=== PATIENT | male | born 1990 | race African-American/Black ===

== ENCOUNTER 2017-10-15 05:02 | Emergency (ER) | payer OTHER ==
[2017-10-15 05:28] VITALS: BP 170/112; PULSE 107; RESP 18; TEMP 98.2; O2SAT 91
[2017-10-15] MEDS ORDERED: IBUPROFEN 600 MG TAB PO ONE (05:28)
[2017-10-15] MEDS ORDERED: ACETAMINOPHEN 500 MG TAB PO ONE (05:28)
--- NOTE | 2017-10-15 05:32 | EDPHY ---
H & P Time Seen by Provider: 10/15/17 05:31 HPI/ROS: CC: low back pain HPI: This 26 y/o male with PMH of pulmonary HTN, asthma, NIDDM and TOYN presents to the ER this morning with his GF of 4 months for low back pain x 2 days. 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 After his shift, he helped a [employer] employee move some boxes filled with [employer] wiper fluid and defrosting liquid. The day after this he had pain in the right lower back. It feels like a "tight knot." He rates it a 7/10. "I was worried I strained a muscle." No aggravating or alleviating factors. No radiation of the pain. No numbness, tingling, saddle anesthesia, bowel or bladder disfunction, no foot drop. No hematuria or dysuria. No other injury. He did have low back pain in the past. No recent illness. Checks his blood glucose every 2 weeks or so. Says he checked it yesterday and it was "medium." Hasn't seen his PCP in one year. Note: The patient lives in [place] and was in [place] this morning with his girlfriend. He states the discomfort was keeping him awake and his girlfriend ( who lives in this area) wanted him to come to this facility from [place]. Upon check-in, the girlfriend asked the RN which doctor was working. The girlfriend went back out to the car and did not enter the patient's room while I was with him. I recognize the girlfriend from frequent prior visits, many for pain related complaints and even "low back pain from lifting boxes." ROS: The remainder of a 10 pt. ROS is negative. 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 Unmarried. Works as a security technician. Smoking Status: Never smoked Physical Exam: Gen: A/O x 3, in NAD Skin: No rashes HEENT: NC/AT, PERRLA, EOMI, oropharynx clear, TMs nml Neck: supple, FROM Heart: RRR, no M/G/R Lungs: CTAB, non R/R/W Abdomen: Soft, NT, ND; +BS; no R/G/R Back: +TTP right lower back lateral to sacrum at about S2 Extremities: FROM, no edema, no calf pain, equal strength bilaterally, good dorsiflexion bilateral great toes, negative active and passive SLR. Neuro: non-focal exam Constitutional: Initial Vital Signs Temperature (C) 98.2 F 10/15/17 05:18 Heart Rate 107 H 10/15/17 05:18 Respiratory Rate 18 10/15/17 05:18 Blood Pressure 170/112 H 10/15/17 05:18 O2 Sat (%) 91 L 10/15/17 05:18 O2 Delivery Mode Room Air Allergies/Adverse Reactions: crab Allergy (Mild, Verified 10/15/17 05:04) Vomiting Home Medications: Medication Instructions Recorded Diltiazem 10/15/17 Little Refugio Pill 10/15/17 Medication For Bp 10/15/17 Metformin HCl 10/15/17 Red Inhaler 10/15/17 Medical Decision Making ED Course/Re-evaluation: The patient was seen and examined. VS reviewed. [facility] records from [facility] reviewed dated 09/01/2016. Patient's exam was not concerning for a neurological emergency. He was given ibuprofen, tylenol and lidocaine patches. He was instructed on proper lifting techniques. His BMP was unremarkable. He was instructed to call first this Monday after the and arrange follow up with his PCP. He will return to the ER if symptoms change or worsen as discussed. Differential Diagnosis: DDx considered for but not limited to: muscle strain, kidney stone (unlikely), UTI (unlikely), herniated disc (unlikely), electrolyte/BG abnormality, narcotic seeking (here at girlfriend's behest who is an ER superuser for pain related complaints) - Data Points Laboratory Results: Laboratory Results 10/15/17 06:05 Medications Given: Discontinued Medications Acetaminophen (Tylenol) 1,000 mg PO EDNOW ONE Stop: 10/15/17 05:29 Last Admin: 10/15/17 05:33 Dose: 1,000 mg Ibuprofen (Motrin) 600 mg PO EDNOW ONE Stop: 10/15/17 05:29 Last Admin: 10/15/17 05:33 Dose: 600 mg Lidocaine (Lidoderm 5%) 2 ea TD ONCE ONE Stop: 10/15/17 06:01 Last Admin: 10/15/17 06:31 Dose: 2 ea Lidocaine (Lidoderm 5%) 2 ea TD ONCE ONE Stop: 10/15/17 06:02 Last Admin: 10/15/17 07:10 Dose: Not Given Departure - Departure Disposition: Home, Routine, Self-Care Clinical Impression: Low back pain Condition: Good Instructions: Lidocaine Patch (On the skin), Low Back Strain (ED), Lower Back Exercises (ED) Additional Instructions: You may use an ice pack and alternate with warm moist heat. Tylenol or ibuprofen for pain. They also sell Lidocaine patches without a prescription. Use proper lifting techniques. Do not lift more than 15lbs until your back feels better. Call Monday to arrange follow up with your doctor in the next 1 - 2 weeks. Return to an ER if symptoms change or worsen. Referrals: Patient,NotPresent [Primary Care Provider] - As per Instructions
[2017-10-15] MEDS ORDERED: LIDOCAINE 5% 1 EA PATCH TD ONE (06:01)
[2017-10-15] MEDS: LIDOCAINE 5% 1 EA PATCH TD ONE ×2 (06:30→06:31)
[2017-10-15] MEDS ORDERED: LIDOCAINE 5% 1 EA PATCH TD SCH (09:00)
[2017-10-15] MEDS ORDERED: PATCH REMOVAL 1 EA PATCH TD SCH ×3 (21:00)
== END 2017-10-15 06:38 | disposition home or self-care (01) ==
LOC: CED 05:02
DX: M54.5 Low back pain (principal); I10 Essential (primary) hypertension; E11.9 Type 2 diabetes mellitus without complications; J45.909 Unspecified asthma, uncomplicated; Z79.84 Long term (current) use of oral hypoglycemic drugs
CPT/HCPCS: 80048-PO